=== PATIENT | male | born 1970 | race Caucasian/White ===

== ENCOUNTER 2017-05-09 08:02 | Emergency (ER) | payer SELFPAY ==
[~2017-05-09] VITALS: Ht 182.9 cm; Wt 79.8 kg
[2017-05-09] MEDS ORDERED: NKM (08:10)
--- NOTE | 2017-05-09 08:23 | Emergency Room Report ---
History of Present Illness General Chief Complaint: Lower Extremity Injury Source: Patient Present Illness HPI The patient presents with right knee pain. He was playing soccer yesterday and suddenly another person fell in front of him and he fell over that person. He does not remember twisting his knee to the side. He took Motrin yesterday and also this morning. This helped somewhat with the pain. Is able to ambulate. He's been wearing a elastic brace.. Denies a lot of swelling. He reports pain is 10/10 however he is calm and further declines pain medication treatment here. 4 years ago he injured the same knee. At that time it was swollen. He didn't have evaluation at that time. The patient denies any fevers, numbness, redness. Allergies: Coded Allergies: No Known Allergies (Unverified , 05/09/17) Patient History Past Medical History: see triage record Social History: Reports: smoking Social History Narrative automotive electrician Reviewed Nursing Documentation: PMH: Agreed, PSxH: Agreed Nursing Documentation-PMH Past Medical History: No Stated History Review of Systems Constitutional: Denies: fever Respiratory: Denies: shortness of breath Cardiovascular: Denies: chest pain Gastrointestinal: Denies: abdominal pain Musculoskeletal: Reports: see HPI Skin: Reports: see HPI Neurological: Reports: see HPI Hematologic/Lymphatic: Denies: easy bleeding Physical Exam Vital Signs Date Time Temp Pulse Resp B/P Pulse Ox O2 Delivery O2 Flow Rate FiO2 05/09/17 08:03 97.5 45 16 106/65 98 Room Air Sp02 EP Interpretation: reviewed, normal General Appearance: well appearing, no apparent distress Head: normocephalic, atraumatic Eyes: bilateral eye PERRL, bilateral eye normal inspection ENT: hearing grossly normal, normal voice, moist mucus membranes Neck: full range of motion, supple Respiratory: no respiratory distress, speaking full sentences Cardiovascular #1: regular rate, rhythm Cardiovascular #2: 2+ radial (R), 2+ dorsalis pedis (R) Gastrointestinal: scaphoid Musculoskeletal: no calf tenderness, other - tender medially R knee, laxity medially with + Applie's compression. Minimal drawar. Lat lig stable. L knee normal exam Neurologic: alert, motor strength/tone normal, DTRs symmetric, sensory intact, normal gait Psychiatric: mood/affect normal Skin: no rash Medical Decision Making Diagnostic Impression: Primary Impression: Acute cartilage injury of knee Qualified Codes: S89.91XA - Unspecified injury of right lower leg, initial encounter Additional Impression: Knee MCL sprain Qualified Codes: S83.411A - Sprain of medial collateral ligament of right knee , initial encounter ER Course Patient presents with right knee pain. His exam there is laxity of the anterior cruciate as well as medial collateral ligament. He is ambulatory however there is point tenderness. Therefore by [place] knee rules x-rays are indicated. The patient is declining pain medication at this time even though he reported to the triage nurse 10/ pain. The knee will need to be immobilized and a knee immobilizer has been ordered to be applied after x-rays taken. Xrays without fracture. Immobilizer placed by tech. Position excellent and neurovasc normal. He is not pleased at having the knee immobilized. I explained how the knee needs to heal. He understood. Patient stable for outpatient observation and treatment. Other X-Ray Diagnostic Results Other X-Ray Diagnostic Results : X-Ray ordered: l knee # of Views/Limited Vs Complete: 3 View Indication: Pain EP Interpretation: Yes Interpretation: no dislocation, no soft tissue swelling, no fractures Interpreting ER Provider: signed Fredis Hannon MD Last Vital Signs Date Time Temp Pulse Resp B/P Pulse Ox O2 Delivery O2 Flow Rate FiO2 05/09/17 09:22 97.5 78 16 106/65 98 Room Air Status: improved Disposition: HOME, SELF-CARE Condition: Improved Scripts Tramadol Hcl* (ULTRAM*) 50 Mg Tablet 50 MG ORAL Q6H Y for For Pain, #6 TAB 0 Refills Prov: Fredis Hannon M.D. 05/09/17 Ibuprofen* (MOTRIN*) 600 Mg Tablet 600 MG ORAL Q6H Y for For Pain, #20 TAB Prov: Fredis Hannon M.D. 05/09/17 Fredis Hannon M.D. May 09, 2017 08:23
[2017-05-09] MEDS ORDERED: IBUPROFEN600 MG ORAL (08:27)
[2017-05-09] MEDS ORDERED: TRAMADOL HCL50 MG ORAL (08:27)
[2017-05-09 09:22] VITALS: BP 106/65
--- NOTE | 2017-05-09 12:17 | Diagnostic Imaging Report ---
Indication: TRAUMA Technique: 3 views of the right knee Comparison: None Findings:No acute fractures. No dislocations. No suprapatellar effusion. Joint spaces are preserved Impression:Negative
== END 2017-05-09 09:32 | disposition home or self-care (01) ==
LOC: EMR 08:30
DX: S83.411A Sprain of medial collateral ligament of right knee, initial encounter (principal); W19.XXXA Unspecified fall, initial encounter; Y92.89 Other specified places as the place of occurrence of the external cause; F17.200 Nicotine dependence, unspecified, uncomplicated
CPT/HCPCS: 99283